=== PATIENT | male | born 1985 | race Two or more races ===

== ENCOUNTER 2022-08-28 13:27 | Emergency (ER) | payer SELFPAY ==
[~2022-08-28] VITALS: Ht 170.2 cm; Wt 74.0 kg
[2022-08-28 14:00] LABS: BASOPHILS % 1.1 % (0.0-2.0); EOSINOPHILS % 5.7 % (0.0-5.0); HEMATOCRIT. 36.5 % (42.0-52.0); HEMOGLOBIN. 12.3 g/dL (14.0-18.0); MEAN CORPUSCULAR HEMOGLOBIN 32.9 pg (28.0-32.0); MEAN CORPUSCULAR VOLUME 97.7 fL (80.0-94.0); MEAN PLATELET VOLUME 7.3 fl (7.4-10.4); MONOCYTES % 10.9 % (2.0-8.0); NEUTROPHILS % 40.3 % (40.0-76.0); PLATELET 410 x1000/uL (130-400); RED BLOOD CELL COUNT 3.74 mill/uL (4.7-6.1); RED CELL DISTRIBUTION WIDTH 17.8 % (11.6-14.6)
[2022-08-28 14:04] LABS: CHLORIDE 108 mEq/L (98-107)
[2022-08-28 14:41] LABS: ETHANOL BLOOD 500 mg/dL
[2022-08-28] MEDS ORDERED: SODIUM CHLORIDE 0.9% 1,000 ML IV ONE (15:45)
[2022-08-28 21:59] VITALS: BP 97/38
== END 2022-08-28 22:02 | disposition home or self-care (01) ==
LOC: ER 13:32 → EDBD 13:32 → ER 22:02
DX: F10.129 Alcohol abuse with intoxication, unspecified (principal); Y90.8 Blood alcohol level of 240 mg/100 ml or more
CPT/HCPCS: 36415; 80048; 80307; 80320; 80329; 85025; 96360; 99283; J7030; Z7610; G0480